=== PATIENT | male | born 1990 | race Asian ===

== ENCOUNTER 2019-04-23 20:49 | Emergency (ER) | payer SELFPAY ==
[~2019-04-23] VITALS: Ht 182.9 cm; Wt 91.0 kg
[2019-04-23] MEDS ORDERED: ALBUTEROL (0.083%) 2.5MG/3ML NEB HHN STA (22:25)
[2019-04-23] MEDS ORDERED: IPRATROPIUM BROMIDE (0.02%) 0.5MG/2.5ML NEB HHN STA (22:25)
[2019-04-24 00:37] VITALS: BP 120/45
== END 2019-04-24 00:39 | disposition home or self-care (01) ==
LOC: ER 20:49
DX: J45.901 Unspecified asthma with (acute) exacerbation (principal); F12.10 Cannabis abuse, uncomplicated
CPT/HCPCS: 71045; 94640; 99283; J7611; Z7610